=== PATIENT | male | born 1970 | race Caucasian/White ===

== ENCOUNTER 2017-05-12 15:07 | Day surgery (SDC) | payer SELFPAY | END 2017-05-12 21:55 | disposition home or self-care (01) | DX: K35.80 Unspecified acute appendicitis (principal); I10 Essential (primary) hypertension; M19.90 Unspecified osteoarthritis, unspecified site; E78.00 Pure hypercholesterolemia, unspecified; Z79.899 Other long term (current) drug therapy ==